=== PATIENT | female | born 1995 | race Caucasian/White ===

== ENCOUNTER 2017-12-25 07:37 | Emergency (ER) | payer OTHER ==
[2017-12-25] MEDS: LIDOCAINE/MYLANTA 40 ML BTL PO (08:25)
[2017-12-25] MEDS: ONDANSETRON (ODT) 4 MG TAB ODT (08:34)
== END 2017-12-25 09:38 | disposition home or self-care (01) ==
LOC: FTE 07:37
DX: R10.12 Left upper quadrant pain (principal); R11.2 Nausea with vomiting, unspecified; Z87.891 Personal history of nicotine dependence
CPT/HCPCS: 99284; Z7502

== ENCOUNTER 2018-03-13 15:26 | Emergency (ER) | payer OTHER | END 2018-03-13 19:14 | disposition home or self-care (01) | LOC: FTE 15:26 | DX: J00 Acute nasopharyngitis [common cold] (principal) | CPT/HCPCS: 99283; Z7502 ==

== ENCOUNTER 2018-11-13 16:38 | Emergency (ER) | payer OTHER | END 2018-11-13 17:25 | disposition home or self-care (01) | LOC: E/R 17:25 → FTE 16:38 | DX: L03.211 Cellulitis of face (principal) | CPT/HCPCS: 99283; Z7502 ==

== ENCOUNTER 2019-01-20 22:02 | Emergency (ER) | payer SELFPAY, OTHER | END 2019-01-20 23:42 | disposition left against medical advice (07) | LOC: FTE 22:02 | DX: Z53.21 Procedure and treatment not carried out due to patient leaving prior to being seen by health care provider (principal) ==

== ENCOUNTER 2019-01-21 22:21 | Emergency (ER) | payer OTHER | END 2019-01-21 23:55 | disposition home or self-care (01) | LOC: FTE 22:21 | DX: R42 Dizziness and giddiness (principal); H92.01 Otalgia, right ear | CPT/HCPCS: 99283; Z7502 ==